=== PATIENT | female | born 1950 | race Caucasian/White ===

== ENCOUNTER 2017-05-04 09:42 | Emergency (ER) | payer MEDICARE, MEDICAID ==
[~2017-05-04] VITALS: Ht 182.9 cm; Wt 102.3 kg
[~2017-05-04 09:42] MED LIST: ALBU8.5H8 IH; ATOR40TA71 PO; ATRIN INH; BUDE10.2 INH; CALC-157 PO; CALC1TAB41 PO; CEPH250T PO; IPRA3AMP IH; LISI2.5T2 PO; METO25TA6 PO; MULT-342 PO; PAT0.1OS OP; POLY17PO10 PO; PRIM50TA42 PO; SPIR25TA PO
[2017-05-04 10:17] LABS: BASOPHILS % (AUTO) 0.3 % (0-1); EOSINOPHILS # (AUTO) 0.4 X10'3 (0-0.9); EOSINOPHILS % (AUTO) 3.4 % (0-6); HEMATOCRIT 32.7 % (35.0-45.0); HEMOGLOBIN 10.6 g/dl (12.0-16.0); LYMPHOCYTES # (AUTO) 2.9 X10'3 (1.1-4.8); LYMPHOCYTES % (AUTO) 22.6 % (21-51); MEAN CORPUSCULAR HEMOGLOBIN 29.6 PG (27.0-31.0); MEAN CORPUSCULAR HGB CONC 32.4 % (33.0-36.5); MEAN CORPUSCULAR VOLUME 91.5 FL (78-98); MEAN PLATELET VOLUME 7.6 FL (7.4-10.4); MONOCYTES # (AUTO) 0.3 X10'3 (0-0.9); MONOCYTES % (AUTO) 2.5 % (2-12); NEUTROPHILS # (AUTO) 9.1 X10'3 (1.8-7.7); NEUTROPHILS % (AUTO) 71.2 % (42-75); PLATELET COUNT 414 X10'3 (140-440); RED BLOOD COUNT 3.57 X10'6 (4.20-5.60); RED CELL DISTRIBUTION WIDTH 15.6 % (11.5-14.5); WHITE BLOOD COUNT 12.8 X10'3 (4.5-11.0)
[2017-05-04 10:32] LABS: PARTIAL THROMBOPLASTIN TIME 25 SECONDS (22-32); PROTHROMBIN TIME 10.2 SECONDS (9.0-12.0)
[2017-05-04 10:34] LABS: ALANINE AMINOTRANSFERASE 19 U/L (12-78); ALBUMIN 3.4 G/DL (3.4-5.0); ALBUMIN/GLOBULIN RATIO 0.7 (1.1-1.5); ALKALINE PHOSPHATASE 159 IU/L (46-116); ANION GAP 8 (8-16); ASPARTATE AMINO TRANSFERASE 15 U/L (10-37); BILIRUBIN,TOTAL 0.5 MG/DL (0.1-1.0); BLOOD UREA NITROGEN 30 MG/DL (7-18); CALCIUM 10.2 MG/DL (8.5-10.1); CHLORIDE 98 MMOL/L (99-107); GLUCOSE 88 MG/DL (70-104); POTASSIUM 4.4 MMOL/L (3.5-5.1); SODIUM 137 MMOL/L (135-145); TOTAL CARBON DIOXIDE 31.3 MMOL/L (24-32); TOTAL PROTEIN 8.4 G/DL (6.4-8.2); eGFR 35 ML/MIN
[2017-05-04] MEDS ORDERED: normal saline 1000ML IV soln IVB ONE (10:50)
[2017-05-04] MEDS ORDERED: benzonatate 100mg capsule PO ONE (10:50)
[2017-05-04] MEDS ORDERED: ipratropium/albuterol 3ml nebule NEB ONE ×2 (10:50→11:45)
[2017-05-04] MEDS ORDERED: guaiFENesin ER 600mg tablet PO SCH (11:20)
[2017-05-04] MEDS ORDERED: ipratropium/albuterol 3ml nebule ONE (11:52)
[2017-05-04 12:23] LABS: D-DIMER 3.85 MG/L FEU (0-0.50)
[2017-05-04] MEDS ORDERED: BENZ-38 PO (17:03)
[2017-05-04] MEDS ORDERED: DOXY100C43 PO (17:03)
[2017-05-04] MEDS ORDERED: GUAI120015 PO (17:03)
[2017-05-04 17:08] VITALS: BP 131/45
== END 2017-05-04 17:15 | disposition home or self-care (01) ==
LOC: ER 09:43
DX: J44.1 Chronic obstructive pulmonary disease with (acute) exacerbation (principal); J18.9 Pneumonia, unspecified organism; E78.00 Pure hypercholesterolemia, unspecified; I10 Essential (primary) hypertension; Z87.891 Personal history of nicotine dependence; Z88.2 Allergy status to sulfonamides; Z88.5 Allergy status to narcotic agent
CPT/HCPCS: 36415; 71045; 78582; 80053; 84484; 85025; 85379; 85610; 85730; 87502; 87503; 93005; 94640; 94760; 96360; 99285; A9539; A9540; J7030

== ENCOUNTER 2017-05-15 17:05 | Inpatient (IN) | payer MEDICARE, MEDICAID ==
[~2017-05-15] VITALS: Ht 182.9 cm; Wt 100.0 kg
[~2017-05-15 17:05] MED LIST changes: +BENZ-38 PO; +DOXY100C43 PO; +GUAI120015 PO
[2017-05-15 17:30] LABS: BASOPHILS # (AUTO) 0.1 X10'3 (0-0.2); BASOPHILS % (AUTO) 0.9 % (0-1); EOSINOPHILS # (AUTO) 0.7 X10'3 (0-0.9); EOSINOPHILS % (AUTO) 10.5 % (0-6); HEMOGLOBIN 10.2 g/dl (12.0-16.0); LYMPHOCYTES # (AUTO) 2.3 X10'3 (1.1-4.8); LYMPHOCYTES % (AUTO) 36.8 % (21-51); MEAN CORPUSCULAR HEMOGLOBIN 30.2 PG (27.0-31.0); MEAN CORPUSCULAR HGB CONC 33.9 % (33.0-36.5); MEAN PLATELET VOLUME 8.5 FL (7.4-10.4); MONOCYTES # (AUTO) 0.4 X10'3 (0-0.9); MONOCYTES % (AUTO) 6.3 % (2-12); NEUTROPHILS # (AUTO) 2.9 X10'3 (1.8-7.7); NEUTROPHILS % (AUTO) 45.5 % (42-75); PLATELET COUNT 261 X10'3 (140-440); RED BLOOD COUNT 3.37 X10'6 (4.20-5.60); RED CELL DISTRIBUTION WIDTH 15.4 % (11.5-14.5); WHITE BLOOD COUNT 6.3 X10'3 (4.5-11.0)
[2017-05-15 17:41] LABS: PARTIAL THROMBOPLASTIN TIME 26 SECONDS (22-32); PROTHROMBIN TIME 10.7 SECONDS (9.0-12.0)
[2017-05-15] MEDS ORDERED: normal saline 1000ML IV soln IVB ONE (17:50)
[2017-05-15 17:57] LABS: ALANINE AMINOTRANSFERASE 29 U/L (12-78); ALBUMIN 3.3 G/DL (3.4-5.0); ALBUMIN/GLOBULIN RATIO 0.8 (1.1-1.5); ALKALINE PHOSPHATASE 140 IU/L (46-116); ANION GAP 10 (8-16); ASPARTATE AMINO TRANSFERASE 19 U/L (10-37); BILIRUBIN,TOTAL 0.3 MG/DL (0.1-1.0); BLOOD UREA NITROGEN 58 MG/DL (7-18); BUN/CREATININE RATIO 27.6 (6.6-38.0); CALCIUM 9.7 MG/DL (8.5-10.1); CHLORIDE 105 MMOL/L (99-107); GLUCOSE 117 MG/DL (70-104); POTASSIUM 4.6 MMOL/L (3.5-5.1); SODIUM 146 MMOL/L (135-145); TOTAL CARBON DIOXIDE 30.6 MMOL/L (24-32); TOTAL PROTEIN 7.6 G/DL (6.4-8.2); eGFR 24 ML/MIN
[2017-05-15] MEDS ORDERED: ondansetron/PF 4mg/2ml inj IV ONE (18:15)
[2017-05-15] MEDS ORDERED: fentaNYL/PF 50MCG/1 ML 2ML syringe IV ONE (18:15)
[2017-05-15 18:16] LABS: URINE HCG NEGATIVE (NEG)
[2017-05-15 18:20] LABS: CLARITY,URINE Clear (Clear); COLOR,URINE Yellow (Yellow); GLUCOSE, URINE Negative (Neg); KETONES,URINE Negative (Neg); LEUKOCYTE ESTERASE ,URINE Negative (Neg); NITRITES, URINE Negative (Neg); OCCULT BLOOD,URINE Negative (Neg); PH,URINE 6.5 (4.8-8.0); PROTEIN,URINE Trace mg/dl (Neg); UROBILINOGEN,URINE 0.2 E.U/dL (0.2-1.0)
[2017-05-15] MEDS ORDERED: aspirin 325mg tablet PO ONE (18:30)
[2017-05-15 19:05] LABS: UA COLLECTION TYPE CLN CATCH MIDSTREAM
[2017-05-15] MEDS ORDERED: apixaban 5mg tablet PO SCH (19:05)
[2017-05-15 19:06] LABS: BACTERIA,URINE NONE SEEN /HPF (Neg); RBC,URINE 0-2 /HPF (0-2); SQUAMOUS EPITHELIAL CELL,UR FEW /LPF (FEW); WBC,URINE 0-4 /HPF (0-4)
[2017-05-15] MEDS ORDERED: MULT-1180 PO (19:38)
[2017-05-15] MEDS ORDERED: GEMF600T3 PO (19:38)
[2017-05-15] MEDS ORDERED: ROSU20TA PO (19:38)
[2017-05-15] MEDS ORDERED: CARV-50 PO (19:38)
[2017-05-15] MEDS ORDERED: ATRIN INH (19:38)
[2017-05-15] MEDS ORDERED: ASPI-1265 PO (19:38)
[2017-05-15] MEDS ORDERED: FURO-150 PO (19:38)
[2017-05-15] MEDS ORDERED: CETI10TA18 PO (19:38)
[2017-05-15] MEDS ORDERED: RANI150T8 PO (19:38)
[2017-05-15] MEDS ORDERED: HYDR-3686 PO (19:38)
[2017-05-15] MEDS ORDERED: temazepam 15mg capsule PO PRN (21:00)
[2017-05-15] MEDS ORDERED: normal saline 1000ml 1,000 ML IV SCH (22:43)
[2017-05-15] MEDS ORDERED: ondansetron/PF 4mg/2ml inj IV PRN (22:45)
[2017-05-15] MEDS ORDERED: tetrahydrozoline 0.05% 15ml ophthalmic drops EACHEYE PRN (22:45)
[2017-05-15] MEDS ORDERED: acetaminophen 650mg rectal suppository RC PRN (22:45)
[2017-05-15] MEDS ORDERED: acetaminophen 325mg tablet PO PRN ×2 (22:45)
[2017-05-15] MEDS ORDERED: diphenhydrAMINE 25mg capsule PO PRN (22:45)
[2017-05-15] MEDS ORDERED: mag hydrox/Alum hydrox/simeth 30ml oral suspension PO PRN (22:45)
[2017-05-15] MEDS ORDERED: magnesium hydroxide 30ml (MOM) UD suspension PO PRN (22:45)
[2017-05-15] MEDS ORDERED: bisacodyl 10mg suppository rectal RC PRN (22:45)
[2017-05-15] MEDS ORDERED: metoclopramide 5 mg/ml inj IV PRN (22:45)
[2017-05-15] MEDS ORDERED: diphenhydrAMINE 50 mg/ml inj IV PRN (22:45)
[2017-05-15] MEDS ORDERED: cefTRIAXone 1g/NS 100ml IVPB 100 ML IV SCH (23:19)
[2017-05-15 23:27] LABS: HEMOGLOBIN A1C 5.7 % (4.5-6.2)
[2017-05-16] MEDS: methylPREDNISolone sod succ 125mg/2ml vial IV SCH ×3 (00:03→19:55)
[2017-05-16] MEDS: azithromycin 250mg tablet PO SCH ×2 (00:04→21:44)
[2017-05-16 04:10] VITALS: BP 119/51
[2017-05-16 06:18] LABS: BASOPHILS % (AUTO) 0.2 % (0-1); EOSINOPHILS # (AUTO) 0.1 X10'3 (0-0.9); EOSINOPHILS % (AUTO) 3.3 % (0-6); HEMATOCRIT 27.5 % (35.0-45.0); HEMOGLOBIN 9.3 g/dl (12.0-16.0); LYMPHOCYTES # (AUTO) 0.9 X10'3 (1.1-4.8); LYMPHOCYTES % (AUTO) 19.2 % (21-51); MEAN CORPUSCULAR HEMOGLOBIN 30.3 PG (27.0-31.0); MEAN CORPUSCULAR HGB CONC 33.9 % (33.0-36.5); MEAN CORPUSCULAR VOLUME 89.5 FL (78-98); MEAN PLATELET VOLUME 8.8 FL (7.4-10.4); MONOCYTES # (AUTO) 0.1 X10'3 (0-0.9); MONOCYTES % (AUTO) 1.4 % (2-12); NEUTROPHILS # (AUTO) 3.5 X10'3 (1.8-7.7); NEUTROPHILS % (AUTO) 75.9 % (42-75); PLATELET COUNT 215 X10'3 (140-440); RED BLOOD COUNT 3.08 X10'6 (4.20-5.60); RED CELL DISTRIBUTION WIDTH 15.4 % (11.5-14.5); WHITE BLOOD COUNT 4.6 X10'3 (4.5-11.0)
[2017-05-16 06:58] LABS: ALANINE AMINOTRANSFERASE 29 U/L (12-78); ALBUMIN 3.1 G/DL (3.4-5.0); ALBUMIN/GLOBULIN RATIO 0.7 (1.1-1.5); ALKALINE PHOSPHATASE 131 IU/L (46-116); ANION GAP 9 (8-16); ASPARTATE AMINO TRANSFERASE 19 U/L (10-37); BILIRUBIN,TOTAL 0.2 MG/DL (0.1-1.0); BLOOD UREA NITROGEN 50 MG/DL (7-18); BUN/CREATININE RATIO 27.8 (6.6-38.0); CALCIUM 9.4 MG/DL (8.5-10.1); CHLORIDE 109 MMOL/L (99-107); CHOL/HDL RATIO 5.7 (0.00-4.99); CHOLESTEROL 198 MG/DL (0-200); GLUCOSE 151 MG/DL (70-104); HDL CHOLESTEROL 35 MG/DL (35-60); LDL CHOLESTEROL 115 MG/DL (50-100); POTASSIUM 5.1 MMOL/L (3.5-5.1); SODIUM 146 MMOL/L (135-145); TOTAL CARBON DIOXIDE 28.1 MMOL/L (24-32); TOTAL PROTEIN 7.3 G/DL (6.4-8.2); TRIGLYCERIDES 142 MG/DL (20-135); eGFR 28 ML/MIN
[2017-05-16 07:55] VITALS: BP 100/53
[2017-05-16] MEDS ORDERED: enoxaparin 100mg/ml syringe SUBCUT SCH (08:00)
[2017-05-16] MEDS ORDERED: metoprolol tartrate 25mg tablet PO SCH (08:00)
[2017-05-16 12:01] VITALS: BP 117/62
[2017-05-16] MEDS: docusate sod 100mg capsule PO SCH ×2 (12:22→19:54)
[2017-05-16] MEDS: famotidine 20mg tablet PO SCH (12:22)
[2017-05-16] MEDS: carVEDilol 12.5mg tablet PO SCH ×2 (12:23→19:52)
[2017-05-16] MEDS: aspirin 81mg tab.chew PO SCH (12:24)
[2017-05-16] MEDS: apixaban 5mg tablet PO SCH ×2 (12:24→19:54)
[2017-05-16] MEDS: primidone 50mg tablet PO SCH (12:35)
[2017-05-16] MEDS ORDERED: ipratropium/albuterol 3ml nebule NEB PRN (14:20)
[2017-05-16] MEDS: ipratropium/albuterol 3ml nebule NEB SCH ×3 (16:06→23:53)
[2017-05-16] MEDS: gemfibrozil 600mg tablet PO SCH ×2 (17:00→17:22)
[2017-05-16] MEDS: atorvastatin 20mg tablet PO SCH (17:22)
[2017-05-16] MEDS: lactobacillus rhamnosus 10,000 MMU CELLS/CAPSULE PO SCH (17:22)
[2017-05-16 19:30] VITALS: BP 158/65
[2017-05-16] MEDS: HYDROcodone/acetaminophen 5mg/325mg tablet PO PRN (19:53)
[2017-05-16] MEDS ORDERED: CefTRIAXone/D5W-Rocephin 1gm 50 ML IV ONE ×2 (21:40)
[2017-05-16] MEDS ORDERED: CefTRIAXone/D5W-Rocephin 1gm 50 ML IV SCH (21:43)
[2017-05-16 23:30] VITALS: BP 102/50
[2017-05-17] MEDS: ipratropium/albuterol 3ml nebule NEB SCH ×6 (03:24→23:39)
[2017-05-17 05:49] LABS: BASOPHILS % (AUTO) 0 % (0-1); EOSINOPHILS # (AUTO) 0.1 X10'3 (0-0.9); EOSINOPHILS % (AUTO) 0.9 % (0-6); HEMATOCRIT 26.6 % (35.0-45.0); HEMOGLOBIN 8.8 g/dl (12.0-16.0); LYMPHOCYTES # (AUTO) 0.9 X10'3 (1.1-4.8); LYMPHOCYTES % (AUTO) 11.9 % (21-51); MEAN CORPUSCULAR HEMOGLOBIN 30.2 PG (27.0-31.0); MEAN CORPUSCULAR HGB CONC 32.9 % (33.0-36.5); MEAN CORPUSCULAR VOLUME 91.7 FL (78-98); MEAN PLATELET VOLUME 8.7 FL (7.4-10.4); MONOCYTES # (AUTO) 0.1 X10'3 (0-0.9); MONOCYTES % (AUTO) 1.6 % (2-12); NEUTROPHILS # (AUTO) 6.4 X10'3 (1.8-7.7); NEUTROPHILS % (AUTO) 85.6 % (42-75); PLATELET COUNT 213 X10'3 (140-440); RED BLOOD COUNT 2.91 X10'6 (4.20-5.60); WHITE BLOOD COUNT 7.5 X10'3 (4.5-11.0)
[2017-05-17 06:15] LABS: ALANINE AMINOTRANSFERASE 20 U/L (12-78); ALBUMIN 2.9 G/DL (3.4-5.0); ALBUMIN/GLOBULIN RATIO 0.7 (1.1-1.5); ALKALINE PHOSPHATASE 107 IU/L (46-116); ANION GAP 8 (8-16); ASPARTATE AMINO TRANSFERASE 15 U/L (10-37); BILIRUBIN,TOTAL 0.3 MG/DL (0.1-1.0); BLOOD UREA NITROGEN 39 MG/DL (7-18); CALCIUM 9.3 MG/DL (8.5-10.1); CHLORIDE 106 MMOL/L (99-107); GLUCOSE 170 MG/DL (70-104); POTASSIUM 5.3 MMOL/L (3.5-5.1); SODIUM 142 MMOL/L (135-145); TOTAL CARBON DIOXIDE 28.2 MMOL/L (24-32); eGFR 35 ML/MIN
[2017-05-17 07:00] VITALS: BP 124/57
[2017-05-17] MEDS: methylPREDNISolone sod succ 125mg/2ml vial IV SCH ×2 (08:23→16:13)
[2017-05-17] MEDS: famotidine 20mg tablet PO SCH (08:23)
[2017-05-17] MEDS: atorvastatin 20mg tablet PO SCH (08:24)
[2017-05-17] MEDS: docusate sod 100mg capsule PO SCH ×2 (08:24→20:25)
[2017-05-17] MEDS: aspirin 81mg tab.chew PO SCH (08:24)
[2017-05-17] MEDS: gemfibrozil 600mg tablet PO SCH ×2 (08:24→17:27)
[2017-05-17] MEDS: carVEDilol 12.5mg tablet PO SCH ×2 (08:24→20:25)
[2017-05-17] MEDS: apixaban 5mg tablet PO SCH ×2 (08:24→20:25)
[2017-05-17] MEDS: lactobacillus rhamnosus 10,000 MMU CELLS/CAPSULE PO SCH ×2 (08:24→17:27)
[2017-05-17] MEDS: primidone 50mg tablet PO SCH (08:24)
[2017-05-17 11:00] VITALS: BP 129/58
[2017-05-17 20:00] VITALS: BP 128/60
[2017-05-17] MEDS: azithromycin 250mg tablet PO SCH (20:25)
[2017-05-17] MEDS: HYDROcodone/acetaminophen 5mg/325mg tablet PO PRN (21:02)
[2017-05-17 23:30] VITALS: BP 114/50
[2017-05-18] MEDS: methylPREDNISolone sod succ 125mg/2ml vial IV SCH ×2 (00:11→08:19)
[2017-05-18] MEDS: ipratropium/albuterol 3ml nebule NEB SCH ×2 (03:07→07:03)
[2017-05-18 06:18] LABS: BASOPHILS % (AUTO) 0.2 % (0-1); EOSINOPHILS # (AUTO) 0.1 X10'3 (0-0.9); HEMATOCRIT 25.8 % (35.0-45.0); HEMOGLOBIN 8.9 g/dl (12.0-16.0); LYMPHOCYTES % (AUTO) 12.1 % (21-51); MEAN CORPUSCULAR HEMOGLOBIN 30.6 PG (27.0-31.0); MEAN CORPUSCULAR HGB CONC 34.6 % (33.0-36.5); MEAN CORPUSCULAR VOLUME 88.2 FL (78-98); MEAN PLATELET VOLUME 8.9 FL (7.4-10.4); MONOCYTES # (AUTO) 0.1 X10'3 (0-0.9); MONOCYTES % (AUTO) 1.5 % (2-12); NEUTROPHILS # (AUTO) 7.1 X10'3 (1.8-7.7); NEUTROPHILS % (AUTO) 85.2 % (42-75); PLATELET COUNT 208 X10'3 (140-440); RED BLOOD COUNT 2.92 X10'6 (4.20-5.60); RED CELL DISTRIBUTION WIDTH 14.9 % (11.5-14.5); WHITE BLOOD COUNT 8.4 X10'3 (4.5-11.0)
[2017-05-18 06:34] LABS: ALANINE AMINOTRANSFERASE 27 U/L (12-78); ALBUMIN/GLOBULIN RATIO 0.8 (1.1-1.5); ALKALINE PHOSPHATASE 92 IU/L (46-116); ANION GAP 6 (8-16); ASPARTATE AMINO TRANSFERASE 17 U/L (10-37); BILIRUBIN,TOTAL 0.2 MG/DL (0.1-1.0); BLOOD UREA NITROGEN 39 MG/DL (7-18); BUN/CREATININE RATIO 32.5 (6.6-38.0); CALCIUM 9.2 MG/DL (8.5-10.1); CHLORIDE 106 MMOL/L (99-107); GLUCOSE 147 MG/DL (70-104); POTASSIUM 4.9 MMOL/L (3.5-5.1); SODIUM 139 MMOL/L (135-145); TOTAL CARBON DIOXIDE 27.1 MMOL/L (24-32); eGFR 45 ML/MIN
[2017-05-18 07:00] VITALS: BP 118/53
[2017-05-18] MEDS: gemfibrozil 600mg tablet PO SCH (08:13)
[2017-05-18] MEDS: primidone 50mg tablet PO SCH (08:14)
[2017-05-18] MEDS: docusate sod 100mg capsule PO SCH (08:14)
[2017-05-18] MEDS: apixaban 5mg tablet PO SCH (08:14)
[2017-05-18] MEDS: famotidine 20mg tablet PO SCH (08:14)
[2017-05-18] MEDS: aspirin 81mg tab.chew PO SCH (08:14)
[2017-05-18] MEDS: carVEDilol 12.5mg tablet PO SCH (08:14)
[2017-05-18] MEDS: lactobacillus rhamnosus 10,000 MMU CELLS/CAPSULE PO SCH (08:14)
[2017-05-18] MEDS: atorvastatin 20mg tablet PO SCH (08:15)
[2017-05-18] MEDS ORDERED: AZI25OT PO (10:38)
== END 2017-05-18 14:20 | disposition home or self-care (01) | DRG 177 ==
LOC: ER 17:05 → ED HOLD 22:43 → MED 3N 05-16 04:05
PROVIDERS: ADMIT Family Medicine; ATTEND Family Medicine
PROC: CB121ZZ Planar Nuclear Medicine Imaging of Lungs and Bronchi using Technetium 99m (Tc-99m) (ICD-10-PCS; principal; 2017-05-16)
DX: J69.0 Pneumonitis due to inhalation of food and vomit (principal); N17.0 Acute kidney failure with tubular necrosis; E87.0 Hyperosmolality and hypernatremia; E87.1 Hypo-osmolality and hyponatremia; R13.10 Dysphagia, unspecified; E87.5 Hyperkalemia; I13.0 Hypertensive heart and chronic kidney disease with heart failure and stage 1 through stage 4 chronic kidney disease, or unspecified chronic kidney disease; J44.1 Chronic obstructive pulmonary disease with (acute) exacerbation; I50.9 Heart failure, unspecified; E78.00 Pure hypercholesterolemia, unspecified; D64.9 Anemia, unspecified; E78.5 Hyperlipidemia, unspecified; N18.9 Chronic kidney disease, unspecified; R09.02 Hypoxemia; E86.0 Dehydration; Z99.81 Dependence on supplemental oxygen; Z88.2 Allergy status to sulfonamides; Z88.6 Allergy status to analgesic agent; Z88.1 Allergy status to other antibiotic agents; Z88.8 Allergy status to other drugs, medicaments and biological substances; Z87.01 Personal history of pneumonia (recurrent); Z87.891 Personal history of nicotine dependence
CPT/HCPCS: 36415; 71045; 78582; 80053; 80061; 80184; 80188; 81001; 81025; 83036; 83605; 83735; 83880; 84145; 84484; 85025; 85379; 85610; 85730; 87040; 87070; 87502; 87503; 92616; 93005; 94640; 94667; 94668; 94760; 96361; 96374; 97116; 97161; 99285; A6212; A6213; A9539; A9540; J0696; J2405; J2930; J7030; Q0163

== ENCOUNTER 2017-08-01 12:10 | Emergency (ER) | payer MEDICARE, MEDICAID ==
[~2017-08-01] VITALS: Ht 182.9 cm; Wt 99.5 kg
[~2017-08-01 12:10] MED LIST changes: +ASPI-1265 PO; -ATOR40TA71 PO; +AZI25OT PO; -BENZ-38 PO; -CALC1TAB41 PO; +CARV-50 PO; -CEPH250T PO; +CETI10TA18 PO; -DOXY100C43 PO; +FURO-150 PO; +GEMF600T3 PO; -GUAI120015 PO; +HYDR-3686 PO; -IPRA3AMP IH; -METO25TA6 PO; +MULT-1180 PO; -MULT-342 PO; +RANI150T8 PO; +ROSU20TA PO; -SPIR25TA PO
[2017-08-01 14:30] VITALS: BP 107/77
== END 2017-08-01 15:44 | disposition home or self-care (01) ==
LOC: ER 12:11
DX: M25.552 Pain in left hip (principal); G25.0 Essential tremor; I11.0 Hypertensive heart disease with heart failure; I50.9 Heart failure, unspecified; E78.00 Pure hypercholesterolemia, unspecified; J44.9 Chronic obstructive pulmonary disease, unspecified; Z88.2 Allergy status to sulfonamides; Z88.5 Allergy status to narcotic agent; Z88.8 Allergy status to other drugs, medicaments and biological substances; Z79.82 Long term (current) use of aspirin; Z79.899 Other long term (current) drug therapy; W18.39XA Other fall on same level, initial encounter; Y93.01 Activity, walking, marching and hiking; Y92.89 Other specified places as the place of occurrence of the external cause; Y99.8 Other external cause status
CPT/HCPCS: 70450; 73502; 99284

== ENCOUNTER 2017-09-22 14:10 | Inpatient (IN) | payer MEDICARE, MEDICAID ==
[~2017-09-22] VITALS: Ht 182.9 cm; Wt 100.0 kg
[2017-09-22 14:57] LABS: BASOPHILS % (AUTO) 0.3 % (0-1); EOSINOPHILS # (AUTO) 0.6 X10'3 (0-0.9); EOSINOPHILS % (AUTO) 6.4 % (0-6); HEMATOCRIT 25.4 % (35.0-45.0); HEMOGLOBIN 8.4 g/dl (12.0-16.0); LYMPHOCYTES # (AUTO) 1.6 X10'3 (1.1-4.8); MEAN CORPUSCULAR HEMOGLOBIN 29.1 PG (27.0-31.0); MEAN CORPUSCULAR VOLUME 88.2 FL (78-98); MEAN PLATELET VOLUME 8.4 FL (7.4-10.4); MONOCYTES # (AUTO) 0.4 X10'3 (0-0.9); MONOCYTES % (AUTO) 4.5 % (2-12); NEUTROPHILS # (AUTO) 6.9 X10'3 (1.8-7.7); NEUTROPHILS % (AUTO) 71.8 % (42-75); PLATELET COUNT 314 X10'3 (140-440); RED BLOOD COUNT 2.88 X10'6 (4.20-5.60); RED CELL DISTRIBUTION WIDTH 16.3 % (11.5-14.5); WHITE BLOOD COUNT 9.7 X10'3 (4.5-11.0)
[2017-09-22 15:15] LABS: ALANINE AMINOTRANSFERASE 15 U/L (12-78); ALBUMIN 3.2 G/DL (3.4-5.0); ALBUMIN/GLOBULIN RATIO 0.6 (1.1-1.5); ALKALINE PHOSPHATASE 150 IU/L (46-116); ANION GAP 13 (8-16); ASPARTATE AMINO TRANSFERASE 17 U/L (10-37); BILIRUBIN,TOTAL 0.3 MG/DL (0.1-1.0); BLOOD UREA NITROGEN 54 MG/DL (7-18); BUN/CREATININE RATIO 14.2 (6.6-38.0); CALCIUM 10.3 MG/DL (8.5-10.1); CHLORIDE 103 MMOL/L (99-107); CREATININE 3.79 MG/DL (0.40-0.90); GLUCOSE 117 MG/DL (70-104); POTASSIUM 5.6 MMOL/L (3.5-5.1); SODIUM 142 MMOL/L (135-145); TOTAL CARBON DIOXIDE 25.6 MMOL/L (24-32); eGFR 12 ML/MIN
[2017-09-22] MEDS ORDERED: normal saline 1000ML IV soln IV ONE (15:25)
[2017-09-22] MEDS ORDERED: CefTRIAXone 2gm/D5W 50ml 50 ML IV ONE (15:25)
[2017-09-22 16:16] LABS: CLARITY,URINE CLOUDY (Clear); COLOR,URINE YELLOW (Yellow); GLUCOSE, URINE NEGATIVE (Neg); KETONES,URINE NEGATIVE (Neg); LEUKOCYTE ESTERASE ,URINE NEGATIVE (Neg); NITRITES, URINE NEGATIVE (Neg); OCCULT BLOOD,URINE NEGATIVE (Neg); PROTEIN,URINE 30 mg/dl (Neg); UROBILINOGEN,URINE 0.2 E.U/dL (0.2-1.0)
[2017-09-22 16:18] LABS: UA COLLECTION TYPE STRAIGHT CATH
[2017-09-22 16:21] LABS: RBC,URINE 0-2 /HPF (0-2); SQUAMOUS EPITHELIAL CELL,UR MODERATE /LPF (FEW)
[2017-09-22 16:23] LABS: BACTERIA,URINE 3+ /HPF (Neg)
[2017-09-22] MEDS ORDERED: acetaminophen 325mg tablet PO PRN (17:00)
[2017-09-22] MEDS ORDERED: magnesium hydroxide 30ml (MOM) UD suspension PO PRN (17:00)
[2017-09-22] MEDS ORDERED: ondansetron/PF 4mg/2ml inj IV PRN (17:00)
[2017-09-22] MEDS ORDERED: azithromycin/NS 500mg/250ml 250 ML IV ONE (17:00)
[2017-09-22] MEDS ORDERED: mag hydrox/Alum hydrox/simeth 30ml oral suspension PO PRN (17:00)
[2017-09-22] MEDS ORDERED: HYDROcodone/acetaminophen 10/325mg tab PO PRN (17:00)
[2017-09-22] MEDS ORDERED: HYDROcodone/acetaminophen 5mg/325mg tablet PO PRN (17:00)
[2017-09-22] MEDS ORDERED: LISI-642 PO (17:18)
[2017-09-22] MEDS: normal saline 1000ml 1,000 ML IV SCH ×2 (17:23→21:55)
[2017-09-22 20:00] VITALS: BP 125/57
[2017-09-22] MEDS: heparin, porcine 5000 units/ml vial SQ SCH (21:51)
[2017-09-23] VITALS: BP 125/49
[2017-09-23 05:39] LABS: ALANINE AMINOTRANSFERASE 15 U/L (12-78); ALBUMIN 2.6 G/DL (3.4-5.0); ALBUMIN/GLOBULIN RATIO 0.5 (1.1-1.5); ALKALINE PHOSPHATASE 133 IU/L (46-116); ANION GAP 12 (8-16); ASPARTATE AMINO TRANSFERASE 12 U/L (10-37); BILIRUBIN,TOTAL 0.2 MG/DL (0.1-1.0); BLOOD UREA NITROGEN 37 MG/DL (7-18); BUN/CREATININE RATIO 14.4 (6.6-38.0); CALCIUM 9.5 MG/DL (8.5-10.1); CHLORIDE 110 MMOL/L (99-107); CREATININE 2.57 MG/DL (0.40-0.90); GLUCOSE 113 MG/DL (70-104); POTASSIUM 4.7 MMOL/L (3.5-5.1); SODIUM 147 MMOL/L (135-145); TOTAL CARBON DIOXIDE 25.2 MMOL/L (24-32); TOTAL PROTEIN 7.8 G/DL (6.4-8.2); eGFR 19 ML/MIN
[2017-09-23 05:52] LABS: BASOPHILS % (AUTO) 0.3 % (0-1); EOSINOPHILS # (AUTO) 0.4 X10'3 (0-0.9); EOSINOPHILS % (AUTO) 5.7 % (0-6); HEMOGLOBIN 7.6 g/dl (12.0-16.0); LYMPHOCYTES # (AUTO) 1.5 X10'3 (1.1-4.8); LYMPHOCYTES % (AUTO) 20.4 % (21-51); MEAN CORPUSCULAR HEMOGLOBIN 29.6 PG (27.0-31.0); MEAN CORPUSCULAR VOLUME 89.9 FL (78-98); MEAN PLATELET VOLUME 9.1 FL (7.4-10.4); MONOCYTES # (AUTO) 0.5 X10'3 (0-0.9); MONOCYTES % (AUTO) 6.9 % (2-12); NEUTROPHILS # (AUTO) 5.1 X10'3 (1.8-7.7); NEUTROPHILS % (AUTO) 66.7 % (42-75); PLATELET COUNT 286 X10'3 (140-440); RED BLOOD COUNT 2.56 X10'6 (4.20-5.60); WHITE BLOOD COUNT 7.5 X10'3 (4.5-11.0)
[2017-09-23 08:36] VITALS: BP 129/52
[2017-09-23] MEDS: azithromycin 250mg tablet PO SCH (09:27)
[2017-09-23] MEDS: CefTRIAXone/D5W-Rocephin 1gm 50 ML IV SCH (09:27)
[2017-09-23] MEDS: normal saline 1000ml 1,000 ML IV SCH ×2 (09:27→18:46)
[2017-09-23] MEDS: heparin, porcine 5000 units/ml vial SQ SCH ×2 (09:28→20:02)
[2017-09-23] MEDS ORDERED: hydrOXYzine 25 MG tablet PO PRN (10:20)
[2017-09-23] MEDS ORDERED: albuterol 2.5 MG/3 ML nebule NEB PRN (10:20)
[2017-09-23] MEDS: ipratropium 0.5 MG/2.5ML nebule NEB SCH ×2 (11:00→15:00)
[2017-09-23] MEDS: albuterol 2.5 MG/3 ML nebule NEB SCH ×2 (11:00→15:00)
[2017-09-23] MEDS: famotidine 20mg tablet PO SCH (11:12)
[2017-09-23 12:24] VITALS: BP 123/45
[2017-09-23] MEDS ORDERED: non-formulary drug (Ipratropium Bromide MDI* (Atrovent MDI*) 2 PUFFS) INH SCH (13:00)
[2017-09-23 17:34] LABS: % IRON SATURATION 12 % (11-46); IRON 26 UG/DL (49-151); TOTAL IRON BINDING CAPACITY 222 UG/DL (259-388)
[2017-09-23 18:00] VITALS: BP 106/48
[2017-09-23] MEDS: ipratropium/albuterol 3ml nebule NEB SCH (19:07)
[2017-09-23] MEDS: budesonide 0.5mg/2ml UD nebule IH SCH (19:15)
[2017-09-23] MEDS ORDERED: non-formulary drug (Budesonide/Formoterol Fumarate (Symbicort 160-4.5 Mcg Inhaler) 2 PUFFS INH SCH (20:00)
[2017-09-23] MEDS: gemfibrozil 600mg tablet PO SCH (20:02)
[2017-09-23] MEDS: carVEDilol 12.5mg tablet PO SCH (20:02)
[2017-09-23] MEDS: lactobacillus rhamnosus 10,000 MMU CELLS/CAPSULE PO SCH (20:02)
[2017-09-23] MEDS: cetirizine 10mg tablet PO SCH (20:02)
[2017-09-23] MEDS: calcium carbonate 500mg tablet PO SCH (20:02)
[2017-09-23 22:32] VITALS: BP 106/48
[2017-09-24] VITALS: BP 136/49
[2017-09-24] MEDS: normal saline 1000ml 1,000 ML IV SCH ×2 (03:32→16:40)
[2017-09-24 05:25] LABS: BASOPHILS % (AUTO) 0.5 % (0-1); EOSINOPHILS # (AUTO) 0.4 X10'3 (0-0.9); EOSINOPHILS % (AUTO) 7.6 % (0-6); HEMATOCRIT 23.8 % (35.0-45.0); HEMOGLOBIN 7.7 g/dl (12.0-16.0); LYMPHOCYTES # (AUTO) 1.8 X10'3 (1.1-4.8); MEAN CORPUSCULAR HEMOGLOBIN 28.8 PG (27.0-31.0); MEAN CORPUSCULAR HGB CONC 32.5 % (33.0-36.5); MEAN CORPUSCULAR VOLUME 88.6 FL (78-98); MEAN PLATELET VOLUME 8.2 FL (7.4-10.4); MONOCYTES # (AUTO) 0.4 X10'3 (0-0.9); MONOCYTES % (AUTO) 8.2 % (2-12); NEUTROPHILS # (AUTO) 2.4 X10'3 (1.8-7.7); NEUTROPHILS % (AUTO) 48.7 % (42-75); PLATELET COUNT 292 X10'3 (140-440); RED BLOOD COUNT 2.69 X10'6 (4.20-5.60); RED CELL DISTRIBUTION WIDTH 15.8 % (11.5-14.5)
[2017-09-24 05:47] LABS: ALANINE AMINOTRANSFERASE 11 U/L (12-78); ALBUMIN 2.4 G/DL (3.4-5.0); ALBUMIN/GLOBULIN RATIO 0.5 (1.1-1.5); ALKALINE PHOSPHATASE 128 IU/L (46-116); ANION GAP 10 (8-16); ASPARTATE AMINO TRANSFERASE 16 U/L (10-37); BILIRUBIN,TOTAL 0.2 MG/DL (0.1-1.0); BLOOD UREA NITROGEN 20 MG/DL (7-18); BUN/CREATININE RATIO 11.8 (6.6-38.0); CALCIUM 9.8 MG/DL (8.5-10.1); CHLORIDE 112 MMOL/L (99-107); CREATININE 1.69 MG/DL (0.40-0.90); GLUCOSE 115 MG/DL (70-104); POTASSIUM 4.9 MMOL/L (3.5-5.1); SODIUM 147 MMOL/L (135-145); TOTAL CARBON DIOXIDE 25.4 MMOL/L (24-32); TOTAL PROTEIN 7.7 G/DL (6.4-8.2); eGFR 30 ML/MIN
[2017-09-24 07:00] VITALS: BP 125/41
[2017-09-24] MEDS: primidone 50mg tablet PO SCH (07:53)
[2017-09-24] MEDS: azithromycin 250mg tablet PO SCH (07:53)
[2017-09-24] MEDS: furosemide 20MG tablet PO SCH (07:53)
[2017-09-24] MEDS: CefTRIAXone/D5W-Rocephin 1gm 50 ML IV SCH (07:53)
[2017-09-24] MEDS: aspirin 81mg tab.chew PO SCH (07:53)
[2017-09-24] MEDS: gemfibrozil 600mg tablet PO SCH ×2 (07:53→19:32)
[2017-09-24] MEDS: lactobacillus rhamnosus 10,000 MMU CELLS/CAPSULE PO SCH ×2 (07:53→19:32)
[2017-09-24] MEDS: multivitamins, therapeutics tablet PO SCH (07:53)
[2017-09-24] MEDS: atorvastatin 20mg tablet PO SCH (07:54)
[2017-09-24] MEDS: lisinopril 5mg tablet PO SCH (07:54)
[2017-09-24] MEDS: carVEDilol 12.5mg tablet PO SCH ×2 (07:55→19:32)
[2017-09-24] MEDS: heparin, porcine 5000 units/ml vial SQ SCH ×2 (07:55→19:33)
[2017-09-24] MEDS: calcium carbonate 500mg tablet PO SCH ×2 (07:55→19:32)
[2017-09-24] MEDS: ipratropium/albuterol 3ml nebule NEB SCH ×4 (09:07→20:48)
[2017-09-24] MEDS: budesonide 0.5mg/2ml UD nebule IH SCH ×2 (09:07→20:48)
[2017-09-24 10:09] LABS: OCCULT BLOOD STOOL NEGATIVE (Neg)
[2017-09-24 11:00] VITALS: BP 99/43
[2017-09-24 16:22] LABS: OCCULT BLOOD STOOL NEGATIVE (Neg)
[2017-09-24 18:00] VITALS: BP 126/43
[2017-09-24] MEDS: cetirizine 10mg tablet PO SCH (21:14)
[2017-09-25] VITALS: BP 101/44
[2017-09-25] MEDS: normal saline 1000ml 1,000 ML IV SCH (02:29)
[2017-09-25 05:32] LABS: BASOPHILS % (AUTO) 0.4 % (0-1); EOSINOPHILS # (AUTO) 0.4 X10'3 (0-0.9); EOSINOPHILS % (AUTO) 9.2 % (0-6); HEMATOCRIT 22.1 % (35.0-45.0); HEMOGLOBIN 7.1 g/dl (12.0-16.0); LYMPHOCYTES # (AUTO) 1.7 X10'3 (1.1-4.8); LYMPHOCYTES % (AUTO) 36.6 % (21-51); MEAN CORPUSCULAR HEMOGLOBIN 28.5 PG (27.0-31.0); MEAN CORPUSCULAR HGB CONC 32.2 % (33.0-36.5); MEAN CORPUSCULAR VOLUME 88.3 FL (78-98); MEAN PLATELET VOLUME 8.2 FL (7.4-10.4); MONOCYTES # (AUTO) 0.3 X10'3 (0-0.9); MONOCYTES % (AUTO) 6.9 % (2-12); NEUTROPHILS # (AUTO) 2.2 X10'3 (1.8-7.7); NEUTROPHILS % (AUTO) 46.9 % (42-75); PLATELET COUNT 327 X10'3 (140-440); RED CELL DISTRIBUTION WIDTH 15.8 % (11.5-14.5); WHITE BLOOD COUNT 4.6 X10'3 (4.5-11.0)
[2017-09-25 05:54] LABS: ALANINE AMINOTRANSFERASE 12 U/L (12-78); ALBUMIN 2.2 G/DL (3.4-5.0); ALBUMIN/GLOBULIN RATIO 0.4 (1.1-1.5); ALKALINE PHOSPHATASE 111 IU/L (46-116); ANION GAP 11 (8-16); ASPARTATE AMINO TRANSFERASE 17 U/L (10-37); BILIRUBIN,TOTAL 0.1 MG/DL (0.1-1.0); BLOOD UREA NITROGEN 15 MG/DL (7-18); BUN/CREATININE RATIO 10.9 (6.6-38.0); CHLORIDE 109 MMOL/L (99-107); CREATININE 1.37 MG/DL (0.40-0.90); GLUCOSE 104 MG/DL (70-104); POTASSIUM 4.4 MMOL/L (3.5-5.1); SODIUM 144 MMOL/L (135-145); TOTAL CARBON DIOXIDE 24.3 MMOL/L (24-32); TOTAL PROTEIN 7.1 G/DL (6.4-8.2); eGFR 39 ML/MIN
[2017-09-25] MEDS: ipratropium/albuterol 3ml nebule NEB SCH ×4 (07:00→19:04)
[2017-09-25 08:00] VITALS: BP 148/62
[2017-09-25] MEDS: budesonide 0.5mg/2ml UD nebule IH SCH ×2 (08:00→19:04)
[2017-09-25] MEDS ORDERED: iron sucrose complex injection 100 MG in normal saline 100ml IV soln 95 ML IV SCH (08:00)
[2017-09-25] MEDS: carVEDilol 12.5mg tablet PO SCH ×2 (08:00→19:40)
[2017-09-25] MEDS: aspirin 81mg tab.chew PO SCH (08:16)
[2017-09-25] MEDS: azithromycin 250mg tablet PO SCH (08:16)
[2017-09-25] MEDS: CefTRIAXone/D5W-Rocephin 1gm 50 ML IV SCH (08:16)
[2017-09-25] MEDS: lactobacillus rhamnosus 10,000 MMU CELLS/CAPSULE PO SCH ×2 (08:16→19:40)
[2017-09-25] MEDS: atorvastatin 20mg tablet PO SCH (08:17)
[2017-09-25] MEDS: gemfibrozil 600mg tablet PO SCH ×2 (08:17→19:40)
[2017-09-25] MEDS: heparin, porcine 5000 units/ml vial SQ SCH ×2 (08:17→19:40)
[2017-09-25] MEDS: multivitamins, therapeutics tablet PO SCH (08:17)
[2017-09-25] MEDS: famotidine 20mg tablet PO SCH (08:18)
[2017-09-25] MEDS: calcium carbonate 500mg tablet PO SCH ×2 (08:18→19:40)
[2017-09-25] MEDS: lisinopril 5mg tablet PO SCH (08:19)
[2017-09-25] MEDS: furosemide 20MG tablet PO SCH (08:20)
[2017-09-25] MEDS: primidone 50mg tablet PO SCH (08:20)
[2017-09-25] MEDS: sodium ferric gluc complex inj 125 MG in normal saline 100ml IV soln 100 ML IV SCH (10:32)
[2017-09-25 11:24] VITALS: BP 118/44
[2017-09-25 13:39] LABS: HEMOGLOBIN 7.8 g/dl (12.0-16.0); MEAN CORPUSCULAR HEMOGLOBIN 28.6 PG (27.0-31.0); MEAN CORPUSCULAR HGB CONC 32.4 % (33.0-36.5); MEAN CORPUSCULAR VOLUME 88.2 FL (78-98); MEAN PLATELET VOLUME 7.8 FL (7.4-10.4); PLATELET COUNT 360 X10'3 (140-440); RED BLOOD COUNT 2.72 X10'6 (4.20-5.60); RED CELL DISTRIBUTION WIDTH 15.4 % (11.5-14.5); WHITE BLOOD COUNT 5.5 X10'3 (4.5-11.0)
[2017-09-25 19:00] VITALS: BP 130/52
[2017-09-25] MEDS: cetirizine 10mg tablet PO SCH (20:13)
[2017-09-26] VITALS: BP 116/47
[2017-09-26 05:08] LABS: BASOPHILS % (AUTO) 0.5 % (0-1); EOSINOPHILS # (AUTO) 0.5 X10'3 (0-0.9); EOSINOPHILS % (AUTO) 9.6 % (0-6); HEMATOCRIT 23.7 % (35.0-45.0); HEMOGLOBIN 7.6 g/dl (12.0-16.0); LYMPHOCYTES # (AUTO) 1.8 X10'3 (1.1-4.8); LYMPHOCYTES % (AUTO) 33.4 % (21-51); MEAN CORPUSCULAR HEMOGLOBIN 28.4 PG (27.0-31.0); MEAN CORPUSCULAR HGB CONC 32.1 % (33.0-36.5); MEAN CORPUSCULAR VOLUME 88.5 FL (78-98); MEAN PLATELET VOLUME 7.9 FL (7.4-10.4); MONOCYTES # (AUTO) 0.3 X10'3 (0-0.9); MONOCYTES % (AUTO) 6.5 % (2-12); NEUTROPHILS # (AUTO) 2.7 X10'3 (1.8-7.7); PLATELET COUNT 369 X10'3 (140-440); RED BLOOD COUNT 2.68 X10'6 (4.20-5.60); RED CELL DISTRIBUTION WIDTH 15.9 % (11.5-14.5); WHITE BLOOD COUNT 5.3 X10'3 (4.5-11.0)
[2017-09-26 05:38] LABS: ALANINE AMINOTRANSFERASE 15 U/L (12-78); ALBUMIN 2.6 G/DL (3.4-5.0); ALBUMIN/GLOBULIN RATIO 0.5 (1.1-1.5); ALKALINE PHOSPHATASE 124 IU/L (46-116); ANION GAP 9 (8-16); ASPARTATE AMINO TRANSFERASE 23 U/L (10-37); BILIRUBIN,TOTAL 0.2 MG/DL (0.1-1.0); BLOOD UREA NITROGEN 12 MG/DL (7-18); BUN/CREATININE RATIO 9.1 (6.6-38.0); CALCIUM 9.6 MG/DL (8.5-10.1); CHLORIDE 105 MMOL/L (99-107); CREATININE 1.32 MG/DL (0.40-0.90); GLUCOSE 100 MG/DL (70-104); POTASSIUM 4.4 MMOL/L (3.5-5.1); SODIUM 141 MMOL/L (135-145); TOTAL CARBON DIOXIDE 27.4 MMOL/L (24-32); TOTAL PROTEIN 7.8 G/DL (6.4-8.2); eGFR 41 ML/MIN
[2017-09-26 07:00] VITALS: BP 114/65
[2017-09-26] MEDS: budesonide 0.5mg/2ml UD nebule IH SCH (07:00)
[2017-09-26] MEDS: ipratropium/albuterol 3ml nebule NEB SCH ×3 (07:00→14:57)
[2017-09-26] MEDS: CefTRIAXone/D5W-Rocephin 1gm 50 ML IV SCH (08:00)
[2017-09-26] MEDS: lisinopril 5mg tablet PO SCH (08:32)
[2017-09-26] MEDS: lactobacillus rhamnosus 10,000 MMU CELLS/CAPSULE PO SCH (08:32)
[2017-09-26] MEDS: azithromycin 250mg tablet PO SCH (08:33)
[2017-09-26] MEDS: calcium carbonate 500mg tablet PO SCH (08:34)
[2017-09-26] MEDS: atorvastatin 20mg tablet PO SCH (08:34)
[2017-09-26] MEDS: aspirin 81mg tab.chew PO SCH (08:35)
[2017-09-26] MEDS: primidone 50mg tablet PO SCH (08:35)
[2017-09-26] MEDS: multivitamins, therapeutics tablet PO SCH (08:35)
[2017-09-26] MEDS: gemfibrozil 600mg tablet PO SCH (08:36)
[2017-09-26] MEDS: furosemide 20MG tablet PO SCH (08:36)
[2017-09-26] MEDS: carVEDilol 12.5mg tablet PO SCH (08:37)
[2017-09-26] MEDS: heparin, porcine 5000 units/ml vial SQ SCH (08:37)
[2017-09-26] MEDS: sodium ferric gluc complex inj 125 MG in normal saline 100ml IV soln 100 ML IV SCH (08:41)
[2017-09-26] MEDS ORDERED: CEFU500T66 PO (10:49)
[2017-09-26] MEDS ORDERED: FERR325T32 PO (10:49)
[2017-09-26] MEDS ORDERED: AZI25OT PO (10:49)
[2017-09-26 11:00] VITALS: BP 130/62
== END 2017-09-26 15:05 | disposition home or self-care (01) | DRG 682 ==
LOC: ER 14:10 → ED HOLD 16:57 → EDBEDREQ 17:36 → SUR 3N 19:10
PROVIDERS: ADMIT Internal Medicine; ATTEND Family Medicine
DX: N17.9 Acute kidney failure, unspecified (principal); J18.9 Pneumonia, unspecified organism; J44.0 Chronic obstructive pulmonary disease with (acute) lower respiratory infection; J44.1 Chronic obstructive pulmonary disease with (acute) exacerbation; N39.0 Urinary tract infection, site not specified; E86.0 Dehydration; D64.9 Anemia, unspecified; B95.2 Enterococcus as the cause of diseases classified elsewhere; D50.9 Iron deficiency anemia, unspecified; E78.00 Pure hypercholesterolemia, unspecified; R62.50 Unspecified lack of expected normal physiological development in childhood; I11.0 Hypertensive heart disease with heart failure; I25.10 Atherosclerotic heart disease of native coronary artery without angina pectoris; I50.9 Heart failure, unspecified; Z79.51 Long term (current) use of inhaled steroids; Z79.82 Long term (current) use of aspirin; Z79.899 Other long term (current) drug therapy; Z87.891 Personal history of nicotine dependence; Z88.2 Allergy status to sulfonamides; Z88.5 Allergy status to narcotic agent; Z88.6 Allergy status to analgesic agent; Z88.8 Allergy status to other drugs, medicaments and biological substances; Z83.3 Family history of diabetes mellitus
CPT/HCPCS: 36415; 71046; 80053; 81001; 82272; 82607; 82746; 83540; 83550; 83605; 85025; 85027; 87040; 87070; 87077; 87088; 87186; 94640; 94760; 96365; 99285; J0456; J0696; J1644; J2916; J7030; J7626

== ENCOUNTER 2020-10-29 10:51 | Emergency (ER) | payer MEDICARE, MEDICAID ==
[~2020-10-29] VITALS: Ht 182.9 cm; Wt 200.0 kg
[~2020-10-29 10:51] MED LIST changes: +CEFU500T66 PO; +FERR325T32 PO; -GEMF600T3 PO; +GEMF600T89 PO; +LISI-642 PO; -LISI2.5T2 PO; -PAT0.1OS OP; -PRIM50TA42 PO; +PRIM50TA5 PO; -ROSU20TA PO; +ROSU20TA2 PO
[2020-10-29] MEDS ORDERED: ipratropium/albuterol 3ml nebule NEB ONE (11:45)
[2020-10-29] MEDS ORDERED: methylPREDNISolone sod succ 125mg/2ml vial IV ONE (11:45)
[2020-10-29 12:30] LABS: BASOPHILS % (AUTO) 0.6 % (0-1); EOSINOPHILS # (AUTO) 0.4 X10'3 (0-0.9); EOSINOPHILS % (AUTO) 6.2 % (0-6); HEMATOCRIT 33.5 % (35.0-45.0); HEMOGLOBIN 10.7 g/dl (12.0-16.0); LYMPHOCYTES % (AUTO) 31.3 % (21-51); MEAN CORPUSCULAR HEMOGLOBIN 30.3 PG (27.0-31.0); MEAN CORPUSCULAR HGB CONC 31.8 g/dL (33.0-36.5); MEAN CORPUSCULAR VOLUME 95.2 FL (78-98); MEAN PLATELET VOLUME 7.8 FL (7.4-10.4); MONOCYTES # (AUTO) 0.3 X10'3 (0-0.9); MONOCYTES % (AUTO) 4.9 % (2-12); NEUTROPHILS # (AUTO) 3.7 X10'3 (1.8-7.7); PLATELET COUNT 245 X10'3 (140-440); RED BLOOD COUNT 3.52 X10'6 (4.20-5.60); RED CELL DISTRIBUTION WIDTH 15.4 % (11.5-14.5); WHITE BLOOD COUNT 6.5 X10'3 (4.5-11.0)
[2020-10-29 12:56] LABS: ALANINE AMINOTRANSFERASE 71 U/L (12-78); ALBUMIN 2.9 G/DL (3.4-5.0); ALBUMIN/GLOBULIN RATIO 0.6 (1.1-1.5); ALKALINE PHOSPHATASE 145 IU/L (46-116); ANION GAP 6 (8-16); ASPARTATE AMINO TRANSFERASE 35 U/L (10-37); BILIRUBIN,TOTAL 0.2 MG/DL (0.1-1.0); BLOOD UREA NITROGEN 22 MG/DL (7-18); BUN/CREATININE RATIO 23.9 (6.6-38.0); CALCIUM 9.1 MG/DL (8.5-10.1); CHLORIDE 105 MMOL/L (99-107); CREATININE 0.92 MG/DL (0.40-0.90); GLUCOSE 100 MG/DL (70-104); POTASSIUM 5.9 MMOL/L (3.5-5.1); SODIUM 143 MMOL/L (135-145); TOTAL CARBON DIOXIDE 31.7 MMOL/L (24-32); eGFR 61 ML/MIN
--- NOTE | 2020-10-29 13:33 | NUR ---
Kermit Gallegos salary and wage administrator [phone] from [facility] called to inform that pt was ADMIT in August for UTI and pneumonia and 2 weeks ago for IV antibiotic. Sister Lyndon [phone]
[2020-10-29 13:52] LABS: ALBUMIN 2.7 G/DL (3.4-5.0); ANION GAP 10 (8-16); BLOOD UREA NITROGEN 22 MG/DL (7-18); BUN/CREATININE RATIO 24.7 (6.6-38.0); CALCIUM 8.7 MG/DL (8.5-10.1); CHLORIDE 105 MMOL/L (99-107); CREATININE 0.89 MG/DL (0.40-0.90); GLUCOSE 98 MG/DL (70-104); SODIUM 144 MMOL/L (135-145); TOTAL CARBON DIOXIDE 28.6 MMOL/L (24-32); eGFR 63 ML/MIN
[2020-10-29 14:11] LABS: POTASSIUM 6.1 MMOL/L (3.5-5.1)
--- NOTE | 2020-10-29 14:46 | NUR ---
PT DISCHARGE, D/C URINE SAMPLE. PT GOING BACK HOME WITH KATHE CARGO. REPORT GIVEN TO [employer] DEVELOPER WHO CALLED EARLIER. PT AUTHORIZED THE INFORMATION TO GIVE. PT GOING VIA WHEELCHAIR
[2020-10-29 14:49] VITALS: BP 125/65
== END 2020-10-29 14:51 | disposition home or self-care (01) ==
LOC: ER 10:51
DX: R05 Cough (principal); E87.6 Hypokalemia; R06.02 Shortness of breath; I11.0 Hypertensive heart disease with heart failure; I50.9 Heart failure, unspecified; E78.00 Pure hypercholesterolemia, unspecified; J44.9 Chronic obstructive pulmonary disease, unspecified; Z87.01 Personal history of pneumonia (recurrent); Z98.890 Other specified postprocedural states; Z88.2 Allergy status to sulfonamides; Z88.5 Allergy status to narcotic agent; Z88.8 Allergy status to other drugs, medicaments and biological substances; Z79.82 Long term (current) use of aspirin; Z79.2 Long term (current) use of antibiotics; Z79.899 Other long term (current) drug therapy
CPT/HCPCS: 36415; 71045; 80048; 80053; 83605; 83880; 84484; 85025; 87040; 93005; 94640; 96374; 99285; J2930; 94760